=== PATIENT | male | born 1950 | race Caucasian/White ===

== ENCOUNTER 2017-12-08 08:04 | Outpatient (CLI) | payer MEDICARE ==
--- NOTE | 2017-12-08 16:32 | Ultrasound Report ---
AORTA SCREENIN12/08/2017 CLINICAL INDICATION: Screening for aneurysm. TECHNIQUE: Real-time scanning was performed with [employer] service representative static images obtained. FINDINGS: The abdominal aorta is normal in caliber, measuring 2.3 cm proximally , 2.1 cm in the mid portion, and 1.8 cm distally. The iliacs are normal in caliber. No free fluid is present. IMPRESSION: NO EVIDENCE OF ABDOMINAL AORTIC ANEURYSM. TD: 12/08/2017 13:23 [facility]
== END 2017-12-08 08:05 | disposition home or self-care (01) ==
LOC: DI 08:04
PROVIDERS: ATTEND Internal Medicine
DX: Z13.6 Encounter for screening for cardiovascular disorders (principal)
CPT/HCPCS: 76706

== ENCOUNTER 2017-12-28 08:12 | Outpatient (CLI) | payer MEDICARE, OTHER ==
--- NOTE | 2017-12-28 13:05 | CT Report ---
CT CHEST WITHOUT CONTRAST FOR LUNG CANCER SCREENIN12/28/2017 CLINICAL INDICATION: A 67-year-old asymptomatic patient with [id number] history of smoking, quit within the last 15 years, for screening. TECHNIQUE: Axial CT images of the chest were obtained without intravenous contrast, using low dose screening technique. COMPARISON: No previous CT is available for comparison. FINDINGS: The heart and great vessels demonstrate mild atherosclerotic calcifications. Calcified left hilar lymph nodes are incidentally noted. The lungs demonstrate minimal dependent atelectasis. No adenopathy is present. No suspicious pulmonary nodule or mass lesion is seen. No effusion or pneumothorax is present. Limited evaluation of upper abdominal structures demonstrates normal adrenal glands. Calcified granulomas are noted in the spleen. Osseous structures demonstrate degenerative changes. IMPRESSION: NEGATIVE EXAMINATION. RECOMMENDATION: Continue annual screening with low dose chest CT in 12 months. LUNG RADS CATEGORY 1 - NEGATIVE. CT DOSE REDUCTION STATEMENT In accordance with CT protocol optimization, one or more of the following dose reduction techniques were utilized for this exam: automated exposure control, adjustment of mA and/or KV based on patient size, or use of iterative reconstructive technique. TD: 12/28/2017 13:04
== END 2017-12-28 08:13 | disposition home or self-care (01) ==
LOC: DI 08:12
PROVIDERS: ATTEND Internal Medicine
DX: Z12.2 Encounter for screening for malignant neoplasm of respiratory organs (principal); Z87.891 Personal history of nicotine dependence

== ENCOUNTER 2023-05-10 07:05 | Outpatient (CLI) | payer MEDICARE ==
[2023-05-10 07:32] LABS: CALCIUM 9.5 mg/dL (8.5-10.3); CREATININE 1.1 mg/dL (0.6-1.3); POTASSIUM 4.2 mmol/L (3.5-4.5)
[2023-05-10 07:33] LABS: BASOPHILS % (AUTO) 0.5 %; EOSINOPHILS # (AUTO) 0.1 10^3/uL (0.0-0.7); EOSINOPHILS % (AUTO) 1.8 %; HCT - HEMATOCRIT 34.8 % (42.0-52.0); HGB - HEMOGLOBIN 11.5 g/dL (14.0-18.0); LYMPHOCYTES # (AUTO) 1.2 10^3/uL (1.5-3.5); LYMPHOCYTES % (AUTO) 27.5 %; MEAN CORPUSCULAR HEMOGLOBIN 31.6 pg (27.0-31.0); MEAN CORPUSCULAR VOLUME 95.6 fL (80.0-94.0); MEAN PLATELET VOLUME 9.9 fL (7.4-11.4); MONOCYTES # (AUTO) 0.3 10^3/uL (0.0-1.0); MONOCYTES % (AUTO) 7.6 %; NEUTROPHILS # (AUTO) 2.7 10^3/uL (1.5-6.6); NEUTROPHILS % (AUTO) 62.4 %; PLT - PLATELET COUNT 165 10^3/uL (130-450); RED BLOOD COUNT 3.64 10^6/uL (4.70-6.10); RED CELL DISTRIBUTION WIDTH 12.6 % (12.0-15.0); WHITE BLOOD COUNT 4.3 x10^3/uL (4.8-10.8)
== END 2023-05-10 07:06 | disposition home or self-care (01) ==
LOC: LAB 07:05
PROVIDERS: ATTEND Internal Medicine Interventional Cardiology
DX: I25.10 Atherosclerotic heart disease of native coronary artery without angina pectoris (principal)
CPT/HCPCS: 36415; 80048; 85025

== ENCOUNTER 2023-11-29 07:53 | Day surgery (SDC) | payer MEDICARE ==
[2023-11-29] MEDS: LACTATED RINGERS 1,000 ML IV ONE (08:08)
[2023-11-29 08:17] VITALS: O2SAT 96
[2023-11-29] MEDS ORDERED: PROPOFOL 500 MG/50 ML 500 MG/50 ML VIAL ONE (09:08)
[2023-11-29] MEDS ORDERED: PROPOFOL 200 MG/20 ML VIAL IVP ONE ×7 (09:31→12:12)
--- NOTE | 2023-11-29 09:33 | ANESTHESIA ---
Pre-Anesthesia VS, & Labs - Diagnosis Screening exam - Procedure colonoscopy Vital Signs: Temp Pulse Resp BP Pulse Ox O2 Flow Rate 36.1 C L 66 14 155/75 H 96 11/29/23 08:08 11/29/23 08:08 11/29/23 08:08 11/29/23 08:08 11/29/23 08:08 Height: 5 ft 10 in Weight (kg): 109.8 kg Body Mass Index: 34.7 BMI Classification: Obese - NPO >8 hours Home Medications and Allergies Home Medications: Ambulatory Orders Aspirin [Aspirin Regimen] 81 mg PO DAILY 11/26/23 Clopidogrel Bisulfate [Plavix] 75 mg ORAL DAILY 11/26/23 Metoprolol Tartrate [Lopressor] 25 mg ORAL DAILY 11/26/23 Rosuvastatin Calcium 20 mg PO DAILY 11/26/23 lisinopriL [Zestril] 5 mg ORAL DAILY 11/26/23 Chrom Elle/Brindal Herrera [Garcinia Cambogia Tablet] 500 PO AC 03/15/14 Aspirin [Aspirin Regimen] 81 mg PO DAILY 11/26/23 Clopidogrel Bisulfate [Plavix] 75 mg ORAL DAILY 11/26/23 Metoprolol Tartrate [Lopressor] 25 mg ORAL DAILY 11/26/23 Rosuvastatin Calcium 20 mg PO DAILY 11/26/23 lisinopriL [Zestril] 5 mg ORAL DAILY 11/26/23 Allergies/Adverse Reactions: Allergies Allergy/AdvReac Type Severity Reaction Status Date / Time No Known Drug Allergies Allergy Verified 04/29/23 08:55 Anes History & Medical History - Anesthetic History Anesthesia Complications: reports: No previous complications - Medical History Cardiovascular: reports: [place] (April of 2023. Had mulitple stents placed. 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 Has been off plavix for 1 week) Pulmonary: reports: None Gastrointestinal: reports: None Urinary: reports: Benign prostate hypertrophy Musculoskeletal: reports: None Endocrine/Autoimmune: reports: None Skin: reports: None Smoking Status: Never smoker Psychosocial: reports: Alcohol (1 rum drink per day) History of Cancer?: No - Surgical History General: reports: Colonoscopy Cardiothoracic: reports: Coronary stent, Angioplasty Orthopedic: reports: Other Dermatologic: reports: Skin cancer surgery Exam General: Alert, Oriented x3, Cooperative, No acute distress Dental: WNL Mouth Openin Fingerbreadth Neck Mobility: Normal Mallampati classification: III Thyromental Distance: 4-6 cm Mental/Cognitive Status: Alert/Oriented X3, Normal for patient Plan Anesthesia Type: General, Total IV Consent for Procedure(s) Verified and Reviewed: Yes Code Status: Attempt Resuscitation ASA classification: 3-Severe systemic disease Is this case an emergency?: No
[2023-11-29] MEDS ORDERED: MIDAZOLAM 2 MG/2 ML VIAL ONE (11:07)
[2023-11-29] MEDS: LACTATED RINGERS 100 ML IV ONE (12:32)
--- NOTE | 2023-11-29 12:50 | ANESTHESIA POST OP EVALUATION ---
Anesthesia Post Eval - Post Anesthesia Eval Vitals: Last Vital Signs Temp 36.1 C L 11/29/23 12:45 Pulse 63 11/29/23 12:45 Resp 20 11/29/23 12:45 BP 137/60 H 11/29/23 12:45 Pulse Ox 96 11/29/23 12:37 O2 Flow Rate CV Function Including HR & BP: Stable Pain Control: Satisfactory Nausea & Vomiting: Negative Mental Status: Baseline Respiratory Status: Airway Patent Hydration Status: Satisfactory Anesthesia Complications: None
[2023-11-29 12:52] VITALS: BP 137/60
== END 2023-11-29 07:54 | disposition home or self-care (01) ==
LOC: SDS 07:53
PROVIDERS: ATTEND Surgery
PROC: 0DBL8ZX Excision of Transverse Colon, Via Natural or Artificial Opening Endoscopic, Diagnostic (ICD-10-PCS; 2023-11-29)
PROC: 0DBN8ZX Excision of Sigmoid Colon, Via Natural or Artificial Opening Endoscopic, Diagnostic (ICD-10-PCS; 2023-11-29)
PROC: 0DBM8ZX Excision of Descending Colon, Via Natural or Artificial Opening Endoscopic, Diagnostic (ICD-10-PCS; 2023-11-29)
PROC: 0DBK8ZX Excision of Ascending Colon, Via Natural or Artificial Opening Endoscopic, Diagnostic (ICD-10-PCS; principal; 2023-11-29 09:45)
DX: Z12.11 Encounter for screening for malignant neoplasm of colon (principal); D12.2 Benign neoplasm of ascending colon; D12.3 Benign neoplasm of transverse colon; D12.4 Benign neoplasm of descending colon; D12.5 Benign neoplasm of sigmoid colon; K57.30 Diverticulosis of large intestine without perforation or abscess without bleeding; K63.5 Polyp of colon; K64.1 Second degree hemorrhoids; I10 Essential (primary) hypertension; E66.9 Obesity, unspecified; Z68.35 Body mass index [BMI] 35.0-35.9, adult
CPT/HCPCS: 45380; 45385; J7120